=== PATIENT | born 1980 | race Caucasian/White ===

== ENCOUNTER → 2025-03-23 09:37 | Outpatient (BNVA) | payer MEDICARE, SELFPAY | PROVIDERS: Referring Provider Family Medicine; Visit Provider Internal Medicine Rheumatology | DX: L40.50 Arthropathic psoriasis, unspecified (principal); Z15.89 Genetic susceptibility to other disease; L73.2 Hidradenitis suppurativa; K50.80 Crohn's disease of both small and large intestine without complications; L40.0 Psoriasis vulgaris; Z79.899 Other long term (current) drug therapy; Z71.85 Encounter for immunization safety counseling | CPT/HCPCS: 36415; 80076; 82306; 82565; 85025; 85651; 86140; 86160; 86162; 86235; 86255; 86376; 86480; 86704; 86803; 87340; 99205 ==

== ENCOUNTER 2025-04-26 09:03 | Oncology outpatient (recurring) (ONCR) | payer MEDICARE, SELFPAY ==
[2025-04-11] MEDS: methylPREDNISolone sod succ 40 mg/mL INJ IVP (08:51)
[2025-04-11] MEDS: diphenhydrAMINE 50 mg/mL SDV 1mL 25 MG IVP (08:51)
[2025-04-11 09:30] VITALS: BP 117/72; PULSE 80; RESP 17; TEMP 36.5; O2SAT 97
[2025-04-11 09:45] VITALS: BP 111/69; PULSE 80; RESP 17; TEMP 36.4; O2SAT 98
[2025-04-11 10:00] VITALS: BP 96/61; PULSE 77; RESP 16; TEMP 36.6; O2SAT 97
[2025-04-11 10:15] VITALS: BP 103/67; PULSE 74; RESP 17; TEMP 36.6; O2SAT 97
[2025-04-11 11:00] VITALS: BP 101/68; PULSE 79; RESP 17; TEMP 36.4; O2SAT 98
[2025-04-11 12:00] VITALS: BP 111/70; PULSE 80; RESP 17; TEMP 36.4; O2SAT 98
--- NOTE | 2025-04-14 09:02 | PC.NURSE ---
Patient called the clinic stating she developed swelling on the right side of her face two days after her Remicade infusion. Patient states she has a broken tooth on that side that has given her trouble off and on for a while as well. Patient sought treatment for swelling at her local medical clinic where she was prescribed penicillin QID for an abscessed tooth. Patient states swelling is now moving up into the eye area. Patient was advised that the new swelling could be related to the abscess. Patient was advised to call back to her provider to make them aware that her swelling is worsening versus improving with the Penicillin. Patient was reminded to make it clear to her provider that she did receive a dose of Remicade,this week, prior to the abscess tooth flaring up. Patient also encouraged to call Dr Soriano's office if she has questions specifically about the Remicade and possible reaction or to seek evaluation in the ER if symptoms to do not resolve or if they worsen. Patient verbalized understanding.
[2025-04-26] MEDS: diphenhydrAMINE 50 mg/mL SDV 1mL 25 MG IVP (09:38)
[2025-04-26] MEDS: methylPREDNISolone sod succ 40 mg/mL INJ IVP (09:39)
[2025-04-26] MEDS: INFLIXIMAB IV (10:22)
[2025-04-26] MEDS: SODIUM CHLORIDE 0.9% IV (10:22)
[2025-04-26 11:27] VITALS: BP 130/84; PULSE 80; RESP 20; O2SAT 96
[2025-04-26 11:35] VITALS: O2SAT 82
[2025-04-26 11:36] VITALS: BP 117/75; PULSE 83; RESP 17; O2SAT 97
[2025-04-26 11:45] VITALS: BP 118/77; RESP 18; O2SAT 95
[2025-04-26 12:25] VITALS: BP 114/77; PULSE 77; RESP 16; TEMP 36.7; O2SAT 98
[2025-04-26 12:50] VITALS: BP 128/74; PULSE 74; RESP 17; TEMP 36.6; O2SAT 98
== END 2025-05-05 23:59 | disposition home or self-care (01) ==
PROVIDERS: Visit Provider Internal Medicine Rheumatology
DX: L40.50 Arthropathic psoriasis, unspecified; Z79.899 Other long term (current) drug therapy; Z79.620 Long term (current) use of immunosuppressive biologic; Z53.9 Procedure and treatment not carried out, unspecified reason
CPT/HCPCS: 96375; 96413; 96415; A4222; J1200; J1745; J2919; J7050; J9999; Q5104